=== PATIENT | male | born 1965 | race Two or more races ===

== ENCOUNTER 2019-04-08 23:49 | Emergency (ER) | payer SELFPAY ==
[~2019-04-08] VITALS: Ht 167.6 cm; Wt 91.6 kg
[2019-04-08] MEDS ORDERED: GLUCOPHAGE850 MG ORAL (23:56)
[2019-04-08] MEDS ORDERED: ADALAT CC30 MG ORAL (23:56)
--- NOTE | 2019-04-09 00:09 | Emergency Room Report ---
History of Present Illness General Chief Complaint: Fever Source: Patient Present Illness HPI Is a 53-year-old [place] male who has a history of high blood pressure and diabetes. He also has frequent urinary tract infection. He presents with chief complaint of fever. Onset tonight. Also with his color to his urine and is an odor to it. Usually this indicate an infection. He usually take Augmentin for it. Denies any abdominal pain. Denies any cough. Denies any nausea vomiting or diarrhea. Has not taken anything for this. Allergies: Coded Allergies: SULFA (SULFONAMIDE ANTIBIOTICS) (Verified Allergy, Unknown, 04/08/19) Patient History Past Medical History: see triage record, old chart reviewed, DM, HTN Past Surgical History: none Pertinent Family History: none Social History: Denies: smoking Immunizations: other Reviewed Nursing Documentation: PMH: Agreed; PSxH: Agreed Nursing Documentation-PMH Past Medical History: No History, Except For Hx Hypertension: Yes - Htn Hx Diabetes: Yes - Type 2 Review of Systems Constitutional: Reports: fever Eye: Denies: eye pain, blurred vision ENT: Denies: ear pain, nose congestion, throat swelling Respiratory: Denies: cough, shortness of breath Cardiovascular: Denies: chest pain, palpitations Gastrointestinal: Denies: abdominal pain, diarrhea, nausea, vomiting Musculoskeletal: Denies: back pain, joint pain Skin: Denies: rash Neurological: Denies: headache, numbness Endocrine: Denies: increased thirst, increased urine Hematologic/Lymphatic: Denies: easy bruising All Other Systems: negative except mentioned in HPI Physical Exam Vital Signs Date Time Temp Pulse Resp B/P (MAP) Pulse Ox O2 Delivery O2 Flow Rate FiO2 04/08/19 23:51 102.7 102 18 144/85 (104) 93 Room Air Vitals with fever Sp02 EP Interpretation: reviewed, normal General Appearance: well appearing, no apparent distress, alert Head: normocephalic, atraumatic Eyes: bilateral eye PERRL, bilateral eye EOMI ENT: hearing grossly normal, normal pharynx Neck: full range of motion, supple, no meningismus Respiratory: chest non-tender, lungs clear, normal breath sounds Cardiovascular #1: regular rate, rhythm, no murmur Gastrointestinal: normal bowel sounds, non tender, no mass, no organomegaly, no bruit, non-distended Musculoskeletal: back normal, gait/station normal, normal range of motion Psychiatric: mood/affect normal Medical Decision Making Diagnostic Impression: Primary Impression: Community acquired pneumonia Qualified Codes: J18.1 - Lobar pneumonia, unspecified organism ER Course Patient presents with a fever. Chest x-ray showed a left lower lobe infiltrate. There is some decreased breath sounds in that area. Even though not coughing, his pulse ox is slightly low. He felt better after IV fluid. Dose of antibiotics given here. He is visiting from [facility]. He has been here for over a month already. Unlikely to be PE. Will discharge home. Chest X-Ray Diagnostic Results Chest X-Ray Diagnostic Results : Chest X-Ray Ordered: Yes # of Views/Limited/Complete: 1 View Indication: Shortness of Breath EP Interpretation: Yes Interpretation: no effusion, no pneumothorax, other - Lower lobe infiltrate left Impression: Other - LLL infiltrate Electronically Signed by: Kiran Marks MD Last Vital Signs Date Time Temp Pulse Resp B/P (MAP) Pulse Ox O2 Delivery O2 Flow Rate FiO2 04/08/19 23:51 102.7 102 18 144/85 (104) 93 Room Air Status: improved Disposition: HOME, SELF-CARE Condition: Stable Scripts Amoxicillin/Potassium Clav 875-125* (AUGMENTIN 875-125 TABLET*) 1 Each Tablet 1 TAB ORAL TWICE A DAY, #14 TAB Prov: Kiran Marks MD 04/09/19 Additional Instructions: Increase fluids. Follow-up with your doctor in 7 days for recheck. Return if worse. Kiran Marks MD Apr 09, 2019 00:09
[2019-04-09] MEDS ORDERED: cefTRIAXone 1 GM in NS 55 ML IVPB ONE (00:15)
[2019-04-09] MEDS ORDERED: Acetaminophen 500mg (ES) tab ORAL ONE (00:15)
[2019-04-09 00:30] LABS: BASOPHILS % (AUTO) 0.8 % (0.0-2.0); HEMATOCRIT 38.8 % (42.0-52.0); HEMOGLOBIN 13.8 G/DL (14.2-18.0); LYMPHOCYTES % (AUTO) 21.1 % (20.0-45.0); MEAN CORPUSCULAR VOLUME 84 FL (80-99); MONOCYTES % (AUTO) 7.7 % (1.0-10.0); NEUTROPHILS % (AUTO) 69.4 % (45.0-75.0); PLATELET COUNT 191 K/UL (150-450); RED CELL DISTRIBUTION WIDTH 11.1 % (11.6-14.8); WHITE BLOOD COUNT 9.1 K/UL (4.8-10.8)
[2019-04-09 00:34] LABS: APPEARANCE,URINE CLEAR; BILIRUBIN, URINE NEGATIVE (NEGATIVE); COLOR,URINE PALE YELLOW; GLUCOSE, URINE (UA) 3+ (NEGATIVE); KETONES,URINE NEGATIVE (NEGATIVE); LEUKOCYTE ESTERASE ,URINE NEGATIVE (NEGATIVE); NITRITE,URINE NEGATIVE (NEGATIVE); PH,URINE 7 (4.5-8.0); PROTEIN,URINE 2+ (NEGATIVE); UROBILINOGEN,URINE NORMAL MG/DL (0.0-1.0)
--- NOTE | 2019-04-09 00:36 | Diagnostic Imaging Report ---
EXAM: XR Chest, 1 View CLINICAL HISTORY: COUGH TECHNIQUE: Frontal view of the chest. COMPARISON: No relevant prior studies available. FINDINGS: Lungs: Opacity at the left lung base which may represent pneumonia. Pleural space: Unremarkable. No pneumothorax. Heart: Unremarkable. No cardiomegaly. Mediastinum: Unremarkable. Bones/joints: Unremarkable. IMPRESSION: Opacity at the left lung base which may represent pneumonia.
[2019-04-09 00:39] VITALS: BP 144/85
--- NOTE | 2019-04-09 00:43 | NUR ---
ED Nurse Note: Patient walked in to ER from home due to fever. Patient's temp upon arrival is 100.7, AAO x4, VSS at this time, skin is dry warm to touch.
[2019-04-09 00:45] LABS: ANION GAP 8 mmol/L (5-15); BLOOD UREA NITROGEN 23 mg/dL (7-18); CALCIUM 8.9 MG/DL (8.5-10.1); CARBON DIOXIDE 30 MMOL/L (21-32); CHLORIDE 99 MMOL/L (98-107); CREATININE 1.6 MG/DL (0.55-1.30); SODIUM 137 MMOL/L (136-145)
[2019-04-09 00:50] LABS: ALANINE AMINOTRANSFERASE 24 U/L (12-78); ALBUMIN 3.9 G/DL (3.4-5.0); ALBUMIN/GLOBULIN RATIO 1.1 (1.0-2.7); ALKALINE PHOSPHATASE 91 U/L (46-116); ASPARTATE AMINO TRANSFERASE 14 U/L (15-37); BILIRUBIN,TOTAL 0.6 MG/DL (0.2-1.0)
[2019-04-09] MEDS ORDERED: Azithromycin 500 MG in NS 275 ML IV ONE (01:00)
[2019-04-09] MEDS ORDERED: AUGMENTIN 875-1 EAC1 ORAL (01:20)
[2019-04-09 02:25] VITALS: BP 145/87
--- NOTE | 2019-04-09 02:27 | NUR ---
ER DISCHARGE NOTE: Patient is cleared to be discharged per ERMD, pt is aox4, on room air, with stable vital signs. pt was given dc and prescription instructions, pt was able to verbalize understanding, pt id band and iv site removed without complications. pt is able to ambulate with steady gait. pt took all belongings.
== END 2019-04-09 02:27 | disposition home or self-care (01) ==
LOC: EMR 04-09 00:12
DX: J18.1 Lobar pneumonia, unspecified organism (principal); I10 Essential (primary) hypertension; E11.9 Type 2 diabetes mellitus without complications; Z88.2 Allergy status to sulfonamides
CPT/HCPCS: 36415; 71045; 80053; 81003; 83605; 85025; 87040; 96361; 96365; 96367; 99284; J0456; J0696; J7050